=== PATIENT | male | born 1955 | race Two or more races ===

== ENCOUNTER 2019-01-06 18:55 | Emergency (ER) | payer SELFPAY ==
[~2019-01-06] VITALS: Ht 154.9 cm; Wt 85.0 kg
[2019-01-06] MEDS ORDERED: IBUPROFEN 600MG TABLET PO STA (19:42)
[2019-01-06 21:44] VITALS: BP 147/71
== END 2019-01-06 21:54 | disposition home or self-care (01) ==
LOC: ER 19:29
DX: S16.1XXA Strain of muscle, fascia and tendon at neck level, initial encounter (principal); V49.88XA Car occupant (driver) (passenger) injured in other specified transport accidents, initial encounter; Y93.89 Activity, other specified; Y92.89 Other specified places as the place of occurrence of the external cause; Y99.8 Other external cause status
CPT/HCPCS: 99284